=== PATIENT | female | born 1965 | race American Indian/Alaskan Native ===

== ENCOUNTER 2023-08-10 16:08 | Emergency (ER) | payer MEDICARE, MEDICAID ==
[2023-08-10] MEDS ORDERED: Ibuprofen 600 MG Tab PO ONE (16:59)
== END 2023-08-10 18:17 | disposition home or self-care (01) ==
LOC: MW.ED 16:08
DX: M79.672 Pain in left foot (principal); I10 Essential (primary) hypertension; Z79.899 Other long term (current) drug therapy
CPT/HCPCS: 36415; 73610; 73630; 84550; A9270; 99283